=== PATIENT | male | born 1980 | race Caucasian/White ===

== ENCOUNTER 2025-03-31 09:02 | Outpatient (CLI) | payer BC, SELFPAY ==
--- NOTE | ~2025-03-31 | XR_ITS ---
EXAM/ PROCEDURE: XR pelvis 1-2V - 03/31/2025 9:22 CDT HISTORY: 44 years old Male with pain in hip x 3 years COMPARISON: None available TECHNIQUE: Two view(s) FINDINGS/ IMPRESSION: There are no fractures or dislocations.Joint space narrowing, subchondral sclerosis, subchondral cyst formation and osteophyte formation, compatible with mild osteoarthritis. Surgical clips are seen in the pelvis. Reviewed, dictated and finalized at location N.
== END 2025-03-31 09:03 | disposition home or self-care (01) ==
PROVIDERS: PCP Chiropractor Rehabilitation; Visit Provider Chiropractor Rehabilitation
DX: M25.551 Pain in right hip (principal)
CPT/HCPCS: 72170

== ENCOUNTER 2025-05-15 09:09 | Outpatient (CLI) | payer BC, SELFPAY ==
--- NOTE | ~2025-05-15 | MR_ITS ---
EXAMINATION: MR hip RT wo con DATE: 05/15/2025 10:10 INDICATION: Right hip derangement TECHNIQUE: Magnetic resonance imaging (MRI) of the right hip was performed without intravenous contrast. Sequences included full-field axial PD-weighted FS FSE and T1-weighted FSE, coronal of the pelvis with PD-weighted FS FSE, T2- weighted FSE and T1-weighted FSE, small field of view of the right hip with axial PD-weighted FS FSE, sagittal PD-weighted FS FSE, coronal PD-weighted FS FSE and coronal T2 weighted FSE. Additional radial T1-weighted FGR oriented orthogonal to the acetabular rim were obtained for evaluation of the labrum. COMPARISON: Pelvis radiographs dated FINDINGS: Bones/labrum/cartilage: Alignment is normal. There is prominent red marrow reexpansion in the pelvis and femurs which could be seen with anemia or chronic hypoxic state such as smoking. Small low signal intensity sclerotic bone islands at the bilateral femoral heads. No fracture, avascular necrosis or pathologic marrow replacing process. There is mild bilateral anterior acetabular over coverage which could predispose towards pincer-type femoral acetabular and second. Labrum is normal. Mild osteoarthritis at the right hip with prominent partial-thickness cartilage loss without degenerative subchondral changes. Fluid: Symmetric physiologic amount of fluid within both hip joints. Soft tissues: Normal and symmetric muscle bulk and signal in the pelvis and visualized proximal thighs. Partial thickness tear involving a significant portion of the right ischial tuberosity common origin of the right biceps femoris and semitendinosus tendons with approximately 5 mm retraction of the torn portion of the tendon. The right semimembranosus tendon origin as to the contralateral proximal left hamstring tendons. The bilateral iliopsoas and gluteal tendons are normal. Prostatomegaly measuring 4.8 x 3.9 cm Limited evaluation of visceral organs of the pelvis is unremarkable. No pathologically enlarged pe lvic/inguinal lymphadenopathy. IMPRESSION: 1. Partial tear of the common right ischial tuberosity origin of the right biceps femoris and semitendinosus tendons. 2. Mild right hip osteoarthritis. 3. Extensive red marrow reexpansion which can be seen in the setting of anemia or chronic hypoxic state such as smoking. 4. Prostatomegaly. Reviewed, dictated and finalized at location A. IMPRESSION: 1. Partial tear of the common right ischial tuberosity origin of the right abelardo ps femoris and semitendinosus tendons. 2. Mild right hip osteoarthritis. 3. Extensive red marrow reexpansion which can be seen in the setting of anemia or chronic hypoxic state such as smoking. 4. Prostatomegaly.
== END 2025-05-15 09:10 | disposition home or self-care (01) ==
LOC: MICIMG 09:11
PROVIDERS: PCP Chiropractor Rehabilitation; Visit Provider Chiropractor Rehabilitation
DX: S76.011A Strain of muscle, fascia and tendon of right hip, initial encounter (principal); X58.XXXA Exposure to other specified factors, initial encounter; R97.8 Other abnormal tumor markers; N40.0 Benign prostatic hyperplasia without lower urinary tract symptoms
CPT/HCPCS: 73721

== ENCOUNTER 2025-06-21 10:02 | Outpatient (CLI) | payer BC, SELFPAY ==
--- NOTE | ~2025-06-21 | US_ITS ---
EXAM/PROCEDURE: US arterial ankle brachial ind HISTORY: PVD COMPARISON: None available. TECHNIQUE: NIC FINDINGS: Right and left brachial systolic pressure readings are 143 and 139 Right and left posterior tibial pressure readings are 171 and 175 Right and left dorsalis pedis pressures are 163 and 173 Right and left great toe pressure readings are 180 and 124 Right and left ABIs are 1.20 and 1.22 Right and left TBI's are 1.26 and 0.87 Plethysmography appears normal IMPRESSION: Both ABIs greater than 1.0. Reviewed, dictated and finalized at location A. K GRINDER IMPRESSION: Both ABIs greater than 1.0.
== END 2025-06-21 10:03 | disposition home or self-care (01) ==
DX: I73.9 Peripheral vascular disease, unspecified (principal)
CPT/HCPCS: 93922

== ENCOUNTER 2025-07-03 13:33 | Emergency (ER) | payer BC, SELFPAY ==
--- OUTSIDE RECORDS SUMMARY | 2025-07-03 08:40 | XMS_ITS | Encounter Summary ---
Author Organization [facility] Address [address] [facility] [address] [place] [address] Phone Care Team Providers Care Security Installation Sales Technician Name Role Phone Robert Wells MD Primary Care Provider [phone] Reason for Visit * Reason Comments Follow-up Erectile Dysfunction PENILE DOPPLER Encounter Details Date Type Department Care Team (Late st Contact Info) Description 07/03/2025 8:40 AM DRUG COUNSELOR Office Visit [facility] Medicine Urology [address] [facility] Medical Office Building [address] [place] [address] Dave Reddy NP [address] [facility] [place] [address] Erectile dysfunction, unspecified erectile dysfunction type (Primary Dx) Social History Tobacco Use Types Packs/Day Years Used Date Smoking Tobacco: Never Smokeless Tobacco: Never AUDIT-C Answer Date Recorded Q1: How often do you have a drink containing alc ohol? Monthly or less 11/10/2024 Q2: How many drinks containi ng alcohol do you have on a typical day when you are drinking? 1 or 2 11/10/2024 Q3: How often do you have si x or more drinks on one occasion? Never 11/10/2024 PHQ-2 Answer Date Recorded PHQ-2 Total Score (If total score is 3 or more points, staff should administer the PHQ-9) 2 06/15/2025 PHQ-9 Answer Date Recorded PHQ-9 Total Score 2 06/15/2025 Personal Safety Answer Date Recorded Have you ever been in or are you currently in a harmful physical or emotional relationship or is someone making you feel afraid or unsafe? Denies 11/10/2024 Sex and Gender Information Value Date Recorded Sex Assigned at Not on file Legal Sex Male 6:09 AM DRUG COUNSELOR Gender Identity Not on file Sexual Orientation Not on file documented as of this encounter Plan of Treatment Not on file documented as of this encounter Visit Diagnoses Diagnosis Erectile dysfunction, unspecified erectile dysfunction type- Primary documented in this encounter Care Teams Security Installation Sales Technician Relationship Specialty Start Date End Date Robert Wells MD [address] [place] [address] PCP - General Internal Medicine 03/06/20 documented as of this encounter
--- OUTSIDE RECORDS SUMMARY | 2025-07-03 08:40 | XMS_ITS | Encounter Summary ---
Author Organization [facility] Address [address] [facility] [address] [place] [address] Phone Care Team Providers Care Supply Manager Name Role Phone Robert Wells MD Primary Care Provider [phone] Reason for Visit * Reason Comments Follow-up Erectile Dysfunction PENILE DOPPLER Encounter Details Date Type Department Care Team (Late st Contact Info) Description 07/03/2025 8:40 AM TONGUE AND GROOVE MACHINE FEEDER Office Visit [facility] Medicine Urology [address] [facility] Medical Office Building [address] [place] [address] Dave Reddy NP [address] [facility] [place] [address] Erectile dysfunction, unspecified erectile dysfunction [...] on file Legal Sex Male 6:09 AM TONGUE AND GROOVE MACHINE FEEDER Gender Identity Not on file Sexual Orientation Not on file documented as of this encounter Plan of Treatment Not on file documented as of this encounter Visit Diagnoses Diagnosis Erectile dysfunction, unspecified erectile dysfunction type- Primary documented in this encounter Care Teams Supply Manager Relationship Specialty Start Date End Date Robert Wells MD [address] [place] [address] PCP - General Internal Medicine 03/06/20 documented as of this encounter
--- OUTSIDE RECORDS SUMMARY | 2025-07-03 09:40 | XMS_ITS | Encounter Summary ---
Author Organization [facility] Address [address] [facility] [address] [place] [address] Phone Care Team Providers Care Home Stager Name Role Phone Robert Wells MD Primary Care Provider [phone] Encounter Details Date Type Department Care Team (Late st Contact Info) Description 07/03/2025 9:40 AM OXYACETYLENE WELDER Office Visit [facility] Medicine Urology [address] [facility] Medical Office Building [address] [place] [address] Holland Mac MD [address] [facility] [place] [address] Erectile dysfunction, unspecified erectile dysfunction type (Primary [...] on file Legal Sex Male 6:09 AM OXYACETYLENE WELDER Gender Identity Not on file Sexual Orientation Not on file documented as of this encounter Plan of Treatment Not on file documented as of this encounter Visit Diagnoses Diagnosis Erectile dysfunction, unspecified erectile dysfunction type- Primary documented in this encounter Care Teams Home Stager Relationship Specialty Start Date End Date Robert Wells MD [address] [address] PCP - General Internal Medicine 03/06/20 documented as of this encounter
--- OUTSIDE RECORDS SUMMARY | 2025-07-03 09:40 | XMS_ITS | Encounter Summary ---
Author Organization [facility] Address [address] [facility] [address] [place] [address] Phone Care Team Providers Care Lunchroom Operator Name Role Phone Robert Wells MD Primary Care Provider [phone] Encounter Details Date Type Department Care Team (Late st Contact Info) Description 07/03/2025 9:40 AM FLOORING MACHINE FEEDER Office Visit [facility] Medicine Urology [address] [facility] Medical Office Building [address] [place] [address] Holland Mac MD [address] [facility] [place] [address] Erectile dysfunction, unspecified erectile dysfunction type (Primary [...] on file Legal Sex Male 6:09 AM FLOORING MACHINE FEEDER Gender Identity Not on file Sexual Orientation Not on file documented as of this encounter Plan of Treatment Not on file documented as of this encounter Visit Diagnoses Diagnosis Erectile dysfunction, unspecified erectile dysfunction type- Primary documented in this encounter Care Teams Lunchroom Operator Relationship Specialty Start Date End Date Robert Wells MD [address] [address] PCP - General Internal Medicine 03/06/20 documented as of this encounter
[2025-07-03 13:40] VITALS: BP 163/103; PULSE 79; RESP 18; TEMP 36.6; O2SAT 98
--- NOTE | 2025-07-03 13:57 | ED_ITS ---
HPI - Male Genitourinary General Chief complaint: Unspecified Stated complaint: adverse react to trimix, erection 5 hours Time Seen by Provider: 07/03/25 13:43 Source: patient Mode of arrival: ambulatory Limitations: no limitations History of Present Illness HPI Narrative: Patient presents with a priapism. He underwent Trimex injection with his urologist Holland Mac through [facility] this morning to undergo Doppler US flow study to further investigate his erectile dysfunction. He reports that upon injection he developed an erection although he states it wasn't very robust. Study was completed and he said as he was driving home it seemed that the medication had become more effective. He continued to go home and thought it might wear off but erection present for 4-5 hours. Called his urologist but due to weather (snow)/road conditions, the drive back was going to be too long/unsafe so he presents here after calling his urologist. History of hypertension. Related Data Allergies Allergy/AdvReac Type Severity Reaction Status Date / Time lisinopril AdvReac Cough Verified 07/03/25 14:12 [facility] Past Medical History Medical History Erectile dysfunction Hypertension Exam 2 Narrative: GENERAL: Well-appearing, well-nourished, and in no acute distress. HEAD: Normocephalic, atraumatic. EYES: Non injected, non icteric ENT: Nares clear, no rhinorrhea or epistaxis. Gross auditory acuity intact. NECK: Supple. No meningismus. CHEST: Speaking in full sentences. No respiratory distress. HEART: Regular rate and rhythm. . ABDOMEN: Soft, nondistended. No rigidity or guarding. Not peritoneal EXTREMITIES: Normal range of motion. No lower extremity edema. SKIN: Warm, dry, no rash. NEURO: No focal deficits. Alert and oriented. Answering questions. Following commands. Normal speech without aphasia or dysarthria. PSYCH: Normal mood and affect. : Normal circumcised male genitalia. No scrotal mass or swelling. Penile shaft is engorged with an erection but urethral meatus remains spongy/soft. No penile discharge. Course Vital Signs Vital signs: Vital Signs Temperature 97.9 F 07/03/25 13:40 Pulse Rate 79 07/03/25 13:40 Respiratory Rate 18 07/03/25 13:40 Blood Pressure 163/103 H 07/03/25 13:40 Pulse Oximetry 98 07/03/25 13:40 Oxygen Delivery Room Air 07/03/25 13:40 Temperature 98.2 F 07/03/25 16:10 Pulse Rate 84 07/03/25 16:10 Respiratory Rate 18 07/03/25 16:10 Blood Pressure 148/88 H 07/03/25 16:10 Pulse Oximetry 100 07/03/25 16:10 Oxygen Delivery Room Air 07/03/25 13:40 MDM - Male Genitourinary MDM Narrative Medical decision making narrative: Patient presents with a priapism, erection has lasted 4-5 hours. Received a dose of Trimix (alprostadil, papaverine, and phentolamine) at his urologist's office this morning for evaluation of erectile dysfunction undergoing Doppler US flow study. Urologist Holland Mac at [facility]. In the emergency department he is afebrile vital signs notable for hypertension. CBC with mild abnormalities on the differential but otherwise without leukocytosis anemia thrombocytopenia. Advised patient he could try strenuous exercises such as running in place or squats. Spoke with L[facility] Urology PA who will discuss with attending, Dr Cobos. Creatinine is 1.47 with no prior for comparison. Suspect HELEN. 1 L IV fluids ordered. Spoke with Lazaro who concurs phenylephrine advised; no role for oral agents. Initial plan was penile nerve block and irrigation/aspiration of corpus cavernosum for priapism and injection of corpora cavernosa with pharmacologic agent. However, Dr Cobos did come down and directly advised starting with phenylephrine rather than nerve block and aspiration. Procedure Note: Injection of corpora cavernosa with pharmacologic agent Indication :Treatment of Priapism 1. Cleaned area of injection with chlorhexidine. Draped appropriately. 2. Inserted 27 gauge needle into penile shaft at 9 o'clock position (performed by Dr Cobos). Phenylephrine at a concentration of 100mcg per 1mL, 1mL injected after blood aspiration to confirm position. This helps but remains engorged. 3. Inserted 27gauge needle into penile shaft at 3 o'clock position (performed by myself, Dr Enamorado). Phenylephrine at a concentration of 100mcg per 1mL, 1mL injected after blood aspiration to confirm position. Patient starting to achieve detumescence. 4. Patient fully monitored throughout, with BP, HR, pulse oximetry. Heart rate to the mid 70s but without bradycardia. 5. Patient monitored for 5 minutes after and has achieved resolution. Patient stable for discharge. Advised follow up with urologist and returning with any new/worsening / recurrent symptoms. Also advised follow up regarding creatinine as unclear if HELEN versus baseline CKD. Differential Diagnosis Differential diagnosis: Likely priapism (low flow vs high flow; drug induced; ) Lab Data Attestation: I reviewed the patient's lab results. 07/03/25 14:03 07/03/25 14:03 Labs: Lab Results 07/03/25 Range/Units 14:03 WBC 6.7 (4.5-10.0) K/mm3 RBC 5.55 (4.6-6.20) M/mm3 Hgb 17.1 (14.0-18.0) g/dL Hct 49.0 (42.0-52.0) % MCV 88.3 (80-100) fl MCH 30.8 (26-34) pg MCHC 34.9 (32-36) g/dl RDW 12.6 (11.5-14.5) % Plt Count 190 (150-375) k/mm3 MPV 10.1 (7.4-10.4) fl Immature Gran % (Auto) 0.7 H (0-0.5) % Neut % (Auto) 65.4 (45.5-73.1) % Lymph % (Auto) 22.4 (18.3-44.2) % [place] % (Auto) 8.5 (2.6-8.5) % Eos % (Auto) 2.7 (0-4.4) % Baso % (Auto) 0.3 (0.2-1.2) % Lymph # (Auto) 1.51 (0.9-3.2) K/mm3 [place] # (Auto) 0.6 (0.1-0.6) K/mm3 Eos # (Auto) 0.2 (0-0.3) K/mm3 Baso # (Auto) 0.0 (0.0-0.1) K/mm3 Abs Immat Gran (auto) 0.05 H (0.00-0.031) K/mm3 Absolute Neuts (auto) 4.4 (1.3-6.7) K/mm3 Absolute Nucleated RBC 0.000 (0.0-0.012) K/mm3 Nucleated RBC % 0.0 (0.0-0.2) % PT 13.5 (11.1-14.7) Seconds INR 1.0 APTT 27.0 (22.3-36.8) Seconds Sodium 139 (137-145) mmol/L Potassium 3.8 (3.4-5.0) mmol/L Chloride 102 (98-107) mmol/L Carbon Dioxide 31 H (22-30) mmol/L Anion Gap 6 (4-12) mmol/L BUN 8 L (9-20) mg/dL Creatinine 1.47 H (0.7-1.3) mg/dL Estim Creat Clear Calc 76 ml/min Estimated GFR 52 L (59 - ) Glucose 85 (65-110) mg/dL Calcium 9.4 (8.4-10.2) mg/dL Urine Color Yellow (Yellow) Urine Appearance Clear (Clear) Urine pH 8.0 (5.0-9.0) Ur Specific [place] 1.014 (1.001-1.035) Urine Protein Negative (Negative) mg/dL Urine Glucose (UA) Negative (Negative) mg/dL Urine Ketones Negative (Negative) mg/dL Ur Blood (Man) Negative (Negative) Urine Nitrate Negative (Negative) Urine Bilirubin Negative (Negative) Urine Urobilinogen 2.0 H (<2.0) mg/dL Leukocyte Esterase Rfl Negative (Negative) RYAN/UL Urine Opiates Screen Negative (Negative) Urine Methadone Screen Negative (Negative) Ur Barbiturates Screen Negative (Negative) Ur Phencyclidine Scrn Negative (Negative) Ur Amphetamine Screen Negative (Negative) U Benzodiazepines Scrn Negative (Negative) Urine Cocaine Screen Negative (Negative) U Cannabinoids Screen Negative (Negative) Discharge Plan Discharge Clinical Impression: Drug-induced priapism, HELEN (acute kidney injury) Patient Disposition: Home Condition: Stable Instructions: Antibiotic Form, Acute Kidney Injury (DC), Priapism (ED) Additional Instructions: Your creatinine (kidney function number ) was 1.47 which is slightly elevated with no prior for comparison. Suspect this to be a degree of acute kidney injury, possibly due to dehydration but have your urologist or primary care physician follow up on this with a repeat lab draw unless you have underlying mild kidney dysfunction. Follow up with your urologist or our urologist if needed. If you need a primary care physician the name of a doctor is listed below. Return to the emergency department with any new or worsening symptoms. Continue taking all of your other medications as prescribed. Patient Language: [place] Leonean Follow-up/Referrals: Holland Mac [Other] Kimo Cobos MD [Physician, Urology] PHYSICIAN NOT ON STAFF,NONSTAFF [Primary Care Provider] Cipriano Gama MD [Physician, Family Practice] Stand Alone Forms: Work/School Release IP Time of Disposition: 15:58
[2025-07-03 14:14] LABS: Hematocrit 49.0 % (42.0-52.0); Hemoglobin 17.1 g/dL (14.0-18.0); Immature Granulocyte Percent A 0.7 % (0-0.5); Lymphocytes Absolute Auto 1.51 K/mm3 (0.9-3.2); Mean Corpuscular HGB Conc 34.9 g/dl (32-36); Mean Corpuscular Hemoglobin 30.8 pg (26-34); Mean Corpuscular Volume 88.3 fl (80-100); Nucleated Red Blood Cells Absolute Auto 0.000 K/mm3 (0.0-0.012); Nucleated Red Blood Cells Perc 0.0 % (0.0-0.2); Platelet Count Result 190 k/mm3 (150-375); Red Blood Count 5.55 M/mm3 (4.6-6.20); White Blood Count 6.7 K/mm3 (4.5-10.0)
[2025-07-03 14:16] LABS: Add Urine Microscopic? YES; Appearance Urine Clear (Clear); Glucose Urine UA Negative (Negative); Leukocyte Esterase Ur Negative LEU/UL (Negative); Nitrate Urine Negative (Negative); Specific Grav Ur 1.014 (1.001-1.035)
[2025-07-03] MEDS: MORPHINE SULFATE (*CRX) 4 MG/ML INJ IV PUSH (14:18)
[2025-07-03 14:25] LABS: Anion Gap 6 mmol/L (4-12); Blood Urea Nitrogen 8 mg/dL (9-20); Calcium 9.4 mg/dL (8.4-10.2); Carbon Dioxide 31 mmol/L (22-30); Chloride 102 mmol/L (98-107); Estimated CRCL calculation 76 ml/min; Estimated Glomerular Filt Rate 52; Glucose 85 mg/dL (65-110); Potassium 3.8 mmol/L (3.4-5.0); Sodium 139 mmol/L (137-145)
[2025-07-03 14:28] LABS: INR 1.0; Prothrombin Time 13.5 Seconds (11.1-14.7)
[2025-07-03 14:29] LABS: Partial Thromboplastin Time 27.0 Seconds (22.3-36.8)
[2025-07-03 14:33] LABS: Cannabinoid Screen Urine Negative (Negative)
[2025-07-03] MEDS: SODIUM CHLORIDE 0.9% IV 1,000 ML 999 ML IV CONT (14:38)
--- OUTSIDE RECORDS SUMMARY | 2025-07-03 14:39 | XMS_ITS | Encounter Summary ---
Author Organization [facility] Address [address] [place] [address] Care Team Providers Care Care Attendant Name Role Phone Robert Wells MD Primary Care Provider [phone] Encounter Details Date Type Department Care Team (Late st Contact Info) Description 06/21/2025 Results Follow-Up [facility] [address] [address] Robert Wells MD [address] [address] [place] Social History Tobacco Use Types Packs/Day Years [...] on file Legal Sex Male 6:09 AM TIN ROOFER Gender Identity Not on file Sexual Orientation Not on file documented as of this encounter Plan of Treatment Not on file documented as of this encounter Visit Diagnoses Not on filedocumented in this encounter Care Teams Care Attendant Relationship Specialty Start Date End Date Robert Wells MD [address] [address] PCP - General Internal Medicine 03/06/20 documented as of this encounter
--- OUTSIDE RECORDS SUMMARY | 2025-07-03 14:40 | XMS_ITS | Clinical Summary ---
Author Organization [facility] Address [address] [facility] [place] [address] Phone Care Team Providers Care Senior Financial Reporting Analyst Name Role Phone Unavailable Primary Care Provider Unavailabl e Allergies No known active allergies Medications No known medications Active Problems No known active problems Immunizations Immunization Administration Dates Next Due (ADACEL/BOOSTRIX)(10 YR UP) TDAP VACCINE, 0.5ML, IM 10/03/2010 Social History Tobacco Use Types Packs/Day Years Used Date Smoking Tobacco: Never Smokeless Tobacco: Never Sex and Gender Information Value Date Recorded Sex Assigned at Not on file Legal Sex Male 4:52 AM NURSING OFFICER Gender Identity Not on file Sexual Orientation Not on file Last Filed Vital Signs Vital Sign Reading Time Taken Comments Blood Pressure 147/100 10/03/2010 3:40 PM NURSING OFFICER Pulse 74 10/03/2010 3:40 PM NURSING OFFICER Temperature 36.4 C (97.5 F) 10/03/2010 3:40 PM NURSING OFFICER Respiratory Rate 16 10/03/2010 3:40 PM NURSING OFFICER Oxygen Saturation - - Inhaled Oxygen Concentration - - Weight - - Height - - Body Mass Index - - Plan of Treatment Health Maintenance Due Date Last Done Comments HEPATITIS B VACCINES (1 of 3 - 19+ 3-dose series) 04/04 HPV VACCINES (1 - 3-dose SCDM series) 2009 DTAP/TDAP/TD VACCINES (2 - Td or Tdap) 10/03/2020 INFLUENZA VACCINE (#1) 2025
--- OUTSIDE RECORDS SUMMARY | 2025-07-03 14:40 | XMS_ITS | Clinical Summary ---
Author Organization [facility] 1 Address [address] [place] [address] Care Team Providers Care Obstetrics Teacher Name Role Phone Robert Wells MD Primary Care Provider [phone] Allergies Active Allergy Reactions Criticality Noted Date Comments Lisinopril Cough Low 11/04/2022 Medications budesonide (PULMICORT) 0.5 mg/2 mL nebulizer solution MIX 1 CAPSULE/AMPULE IN 250 ML OF SALINE IRRIGATIONS (NEILMED SINUS RINSE) AND IRRIGATE EACH NOSTRIL WITH HALF OF THE BOTTLE TWICE DAILY. 120 mL 6 0 Active Additional Information Patient not taking.Reported on 07/03/2025 ibuprofen 200 mg tab/cap Take 2 tablet/capsule (400 mg total) by mouth every 8 (eight) hours as needed for pain Active multivitamin tabletIndication s:Vitamin Deficiency Prevention Take 1 tablet by mouth every morning Multivitamin pack Active acetaminophen (TYLENOL) 500 mg tablet Take 1 tablet (500 mg total) by mouth every 6 (six) hours as needed for pain 30 tablet 5 Active HYDROcodone-acet aminophen (NORCO) 5-325 mg per tabletIndication s:Pain Take 1 tablet by mouth every 6 (six) hours as needed for pain 10 tablet 5 Active Additional Information Patient not taking.Reported on 07/03/2025 sildenafiL, pulm.hypertensio n, (REVATIO) 20 mg tablet Take 1 tablet (20 mg total) by mouth daily as needed (erections) Take 1-5 tablets by mouth as needed (take on empty stomach) 30 tablet Active losartan (COZAAR) 100 mg tablet TAKE 1 TABLET BY MOUTH DAILY 90 tablet 5 Active hydroCHLOROthiaz claudio (MICROZIDE) 12.5 mg capsuleIndicatio ns:Benign hypertension TAKE 1 CAPSULE BY MOUTH DAILY 90 capsule Active testosterone cypionate (DEPO-TESTOTERON E) 200 mg/mL injection Inject into the muscle as instructed every 14 (fourteen) days Active Active Problems Problem Noted Date Diagnosed Date Claudication 06/15/2025 Assessment & Plan (06/15/2025 9:11 AM FORESTRY PATROLMAN): Bilateral leg muscle pain with exercise, exertion Erectile dysfunction 06/15/2025 Assessment & Plan (06/15/2025 9:20 AM FORESTRY PATROLMAN): Chronic; working with urologist Varicocele 09/05/2024 LLQ pain 07/19/2024 Assessment & Plan (07/19/2024 9:54 AM FORESTRY PATROLMAN): Few weeks; worsening; no bowel changes; no nausea, vomiting; ?diverticulitis; abx; CT scan; monitor progress Cutaneous skin tags 07/19/2024 Assessment & Plan (07/19/2024 9:55 AM FORESTRY PATROLMAN): Right axilla with irritated skin tag; abx for suspected diverticulitis should help this as well Epigastric pain 10/09/2023 Assessment & Plan (10/09/2023 1:33 PM FORESTRY PATROLMAN): Intermittent since 09/02; fullness; decreased appetite; no bowel changes; ?biliary, ?peptic ulcer; plans per first line tests; may need GI/endoscopy Morbid obesity 05/18/2023 Assessment & Plan (06/15/2025 9:04 AM FORESTRY PATROLMAN): Wgt unchanged; Discussed healthy diet and importance of regular physical activity. Assessment & Plan (07/19/2024 9:54 AM FORESTRY PATROLMAN): Wgt unchanged; Discussed healthy diet and importance of regular physical activity. Assessment & Plan (06/14/2024 2:17 PM FORESTRY PATROLMAN): Wgt unchanged; Discussed healthy diet and importance of regular physical activity. Assessment & Plan (10/09/2023 1:34 PM FORESTRY PATROLMAN): Unchanged; Discussed healthy diet and importance of regular physical activity. Assessment & Plan (05/18/2023 3:48 PM CDT): Weight up some; Discussed healthy diet and importance of regular physical activity. BRBPR (bright red blood per rectum) 10/30/2021 Assessment & Plan (10/30/2021 11:02 AM CDT): Noted blood per rectum for the past 1 year on toilet tissue and stool as well worsening for the past 6 months on daily basis sometimes. Daily fiber supplement recommended such as FiberCon, Benefiber, Citrucel or Metamucil. Metamucil can cause more bloating and gas however it is still a very good fiber supplement. Choose a fiber supplement [id number] and follow the instructions in the back. See plan for possible constipation likely/questionable irritable bowel syndrome. Anusol suppositories for 2 weeks nightly a day and when patient has completed does can take [id number] Calmol 4 suppositories twice daily as needed for bleeding per rectum. Unable to do Epsom salts Sitz baths, use Vaseline before and after BMs. Colonoscopy will be scheduled to determine the cause of the lower gastrointestinal bleeding. The differential diagnosis includes but is not limited to diverticulosis, microscopic colitis, colonic polyps, hemorrhoids, infectious colitis, rectal ulcer, ulcerative colitis, colonic neoplasms. Please check for spots for colonoscopy for patient within the next 2 months if we do not have any I will send a referral to [facility] which is actually closer for patient Dr. Daly. Family history of Crohn's disease 10/30/2021 Assessment & Plan (10/30/2021 11:05 AM CDT): Paternal uncle Crohn's disease diagnosed in his 20s. Other constipation 10/30/2021 Assessment & Plan (10/30/2021 11:04 AM CDT): Noted pattern of occasional constipation with harder stools infrequently per patient maybe once a month. Daily fiber supplement recommended see plan for blood in stool/bleeding per rectum/BRBPR. In addition if patient is still sees harder pebbly stools or constipation he needs to take [id number] stool softener Colace 100 mg 1 or 2 tablets daily versus MiraLax laxative half a cap full Thursday can increase up to a cap full daily if needed. The goal is to have soft stool on regular basis. Bilateral varicoceles 06/04/2021 Benign essential HTN 03/06/2020 Assessment & Plan (06/15/2025 9:12 AM FORESTRY PATROLMAN): Chronic; controlled on losartan, HCT; continue Assessment & Plan (06/14/2024 2:18 PM FORESTRY PATROLMAN): BP a little up today; no alarm sx; continue HCT, losartan; monitor Assessment & Plan (05/18/2023 3:48 PM CDT): OK on losartan-HCT; Discussed healthy diet and importance of regular physical activity. Assessment & Plan (03/06/2020 3:23 PM CDT): Stable on HCT, lisinopril; continue; monitor Multiple nasal polyps 10/07/2019 Chronic pansinusitis 10/07/2019 Resolved Problems Problem Noted Date Diagnosed Date Resolved Date Tinea cruris 11/04/2022 06/14/2024 Assessment & Plan (11/04/2022 4:48 PM CDT): 1 month; in groin folds sparing the scrotum; topical rx and monitor YAAKOV-inhibitor cough 11/04/2022 06/14/20 Assessment & Plan (11/04/2022 4:48 PM CDT): Change to losartan; monitor sx and BP Fatigue 02/11/2022 06/14/2024 Assessment & Plan (02/11/2022 4:51 PM CDT): Continues; muscular weakness; ?low testosterone; plans per labs Scalp lesion 02/11/2022 06/14/2024 Assessment & Plan (02/11/2022 4:53 PM CDT): Area of left religious scalp looks normal now; no flaking, scaling or discoloration; advised patient to send photo when changes are present so we can better diagnose Screening for colon cancer 11/27/2021 0 02/11/2022 Overview (11/27/2021): Added automatically from request for surgery [id number] Total bilirubin, elevated 10/30/2021 Assessment & Plan (10/30/2021 11:58 AM CDT): Total bilirubin elevated on blood work from June 2021 and previously in 2019. The rest of his liver enzymes are normal likely a benign condition. In future, if persistent elevation on blood work consider direct bilirubin level. Blood in stool 06/04/2021 06/14/2024 Assessment & Plan (06/04/2021 3:41 PM CDT): New; few months; most BM's; ?hemorrhoids, rule out polyps, neoplasm etc Shortness of breath 06/04/2021 06/14/20 24 Assessment & Plan (06/04/2021 3:42 PM CDT): Usually with certain type of exercises at the gym; denies wheezing; normal stress and echo 2018. Has nasal polyps, eczema; suspect asthma as well; empiric trial of montelukast and monitor Abscess of axilla 10/28/2019 03/06/2020 Assessment & Plan (10/28/2019 11:43 AM CDT): Patient presents with cyst present to left axilla for the last week. No drainage noted. Painful to palpation of the area. Patient has history of axillary abscesses. Suspect abscess. Unable to drain at this time. Recommend warm compresses to the area. Keflex sent to pharmacy. F/U if no improvement in symptoms in 2 weeks. Acute bronchitis 04/26/2019 03/06/2020 Assessment & Plan (04/26/2019 2:30 PM CDT): Symptoms for over a week now- coughing fits, chest congestion, fatigue. No fever or chills that he knows of. Denies any wheezing or SOB. Has been taking OTC medication with little relief in symptoms Encounters Date Type Department Care Team Description 07/03/2025 9:40 AM FORESTRY PATROLMAN Office Visit [facility] [address] [place] [address] [address] [place] [phone] Holland Mac MD Erectile dysfunction, unspecified erectile dysfunction type (Primary Dx) 07/03/2025 8:40 AM FORESTRY PATROLMAN Office Visit [facility] [address] [place] [address] [address] [place] [phone] Dave Reddy NP Erectile dysfunction, unspecified erectile dysfunction type (Primary Dx) 07/03/[address] [facility] Medicine Surgery [address] [place] [address] Shikha Starks, [facility] 06/21/2025 Results Follow-Up [facility] at [address] [address] Robert Wells MD [facility] 06/19/2025 Telephone [facility] at [address] [address] Robert Wells MD Authorization/Certi fication 06/15/2025 9:00 AM FORESTRY PATROLMAN Office Visit [facility] at [address] [address] Robert Wells MD Routine medical exam (Primary Dx); Morbid obesity (HCC); BMI 37.0-37.9, adult; Claudication; Benign essential HTN; Immunization due; Erectile dysfunction, unspecified erectile dysfunction type 06/15/2025 Orders Only [facility] at [address] [place] [phone] Provider, MD Talisha 05/15/2025 2:40 PM CDT Office Visit [facility] Medicine Urology [address] [facility] Building 4 [address] [place] [address] Holland Mac MD Scrotal pain (Primary Dx) from Last 3 Months Immunizations Immunization Administration Dates Next Due DTP 09/19/1988, 8,01/09/1988,06/03 DTaP 10/25/2010 Influenza, Quadrivalent, Spl it, Preservative Free, Intramuscular 05/18/2023,06/04/2021,08/05/2018,08/24 Influenza, Trivalent, Preser vative Free, Intramuscular 06/15/2025,06/14/2024 Influenza, Unspecified 05/18/2023(Deferr ed: Patient Refused),10/01/2022(Deferred: Patient Refused),10/01/2021(Deferred: Patient Refused),10/01/2020(Deferred: Patient Refused),10/02/2019(Deferred: Patient Refused),04/26/2019(Deferred: Patient ill today) MMR 02/19/1993 OPV 09/19/1988, 8,01/09/1988,06/03 Pfizer SARS-CoV-2 Monovalent Vaccination (12+ Yrs) PURPLE 02/22/2021 Tdap 05/18/2023,10/03/2010 Surgical History Surgery Date Site/Laterality Comments RETINA SURGERY Left KNEE ARTHROSCOPY 08/03/2005 - 08/02/2006 Left NASAL POLYP EXCISION x3 Medical History Medical History Date Comments Hypertension Sinus problem Sleep apnea Acid reflux Family History Medical History Relation Name Comments Heart disease Maternal Grandmother Grandma Taye Lung cancer Mother Anesthesia problems Neg Hx Malig Hypertension Neg Hx Malig Hyperthermia Neg Hx Pseudochol deficiency Neg Hx Relation Name Status Comments Maternal Grandmother Grandma Taye Mother Social History Tobacco Use Types Packs/Day Years Used Date Smoking Tobacco: Never Smokeless Tobacco: Never Tobacco Cessation:Counseling Given: Not Answered AUDIT-C Answer Date Recorded Q1: How often [...] on file Legal Sex Male 6:09 AM FORESTRY PATROLMAN Gender Identity Not on file Sexual Orientation Not on file Last Filed Vital Signs Vital Sign Reading Time Taken Comments Blood Pressure 138/82 06/15/2025 8:54 AM FORESTRY PATROLMAN Pulse 76 06/15/2025 8:54 AM FORESTRY PATROLMAN Temperature 36 C (96.8 F) 11/10/2024 10:45 AM CDT Respiratory Rate 22 11/10/2024 11:55 AM CDT Oxygen Saturation 98% 06/15/2025 8:54 AM FORESTRY PATROLMAN Inhaled Oxygen Concentration - - Weight 122 kg (269 lb) 06/15/2025 8:54 AM FORESTRY PATROLMAN Height 180.3 cm (5' 11) 06/15/2025 8:54 AM FORESTRY PATROLMAN Body Mass Index 37.52 06/15/2025 8:54 AM FORESTRY PATROLMAN Plan of Treatment Health Maintenance Due Date Last Done Comments Hepatitis C Screening 1982 Hepatitis B Screening 2000 HPV Vaccines (1 - 3-dose SCDM series) 2009 Covid-19 Vaccine ( season) 2025 03/15/2021, 02/22/2021 Depression Screening 06/15/2026 06/15/2025, 06/15/2025, 06/14/2024, Additional history exists Regular Well Visit/Exam 18-64 06/15/2026 06/15/2025, 06/14/2024, 05/18/2023, Additional history exists DTaP/Tdap/Td Vaccine (8 - Td or Tdap) 05/18/2033 05/18/2023, 10/25/2010, 10/03/2010, Additional history exists Influenza Vaccine Completed 06/15/2025, , 05/18/2023, Additional history exists Pneumococcal vaccine <65 Aged Out No longer eligible based on patient's age to complete this topic Varicella Vaccines Discontinued Procedures Procedure Name Priority Date/Time Associated Diagnosis Comments US NIC Routine 06/21/2025 Claudication MRI HIP RIGHT W WO CONTRAST Schedule Routine, Read Routine (OP Routine) 05/15/2025 10:40 AM CDT from Last 3 Months Results * US NIC (06/21/2025) Anatomical Region Laterality Modality Vascular N/A Ultrasound 06/21/2025 Robert Wells MD IMG US PROCEDURES Final Result * MRI Hip Right W WO Contrast (05/15/2025 10:40 AM CDT) Anatomical Region Laterality Modality Lower Extremities Right Magnetic Reson ance Narrative 05/15/2025 10:40 AM CDT Please see attached report. Historical Provider IMCelio MRI PROCEDURES Edited Result - Final from Last 3 Months Insurance [employer] [facility] Address: [address] [place] [address] [employer] Care Teams Obstetrics Teacher Relationship Specialty Start Date End Date Robert Wells MD [address] [place] [id number] PCP - General Internal Medicine 03/06/20
--- OUTSIDE RECORDS SUMMARY | 2025-07-03 14:40 | XMS_ITS | Encounter Summary ---
Author Organization [facility] Address [address] [place] [address] Care Team Providers Care Lemon Picker Name Role Phone Unavailable Primary Care Provider Unavailabl e Encounter Details Date Type Department Care Team (Late st Contact Info) Description 10/18/1999 Outpatient Historical [facility]s [address] [place] [phone] Mavis Mcgowan Social History Tobacco Use Types Packs/Day Years Used Date Smoking Tobacco: Never Assessed Sex and Gender Information Value Date Recorded Sex Assigned at Not on file Legal Sex Male 4:52 AM VENUE MANAGER Gender Identity Not on file Sexual Orientation Not on file documented as of this encounter Plan of Treatment Not on file documented as of this encounter Visit Diagnoses Not on filedocumented in this encounter
--- OUTSIDE RECORDS SUMMARY | 2025-07-03 14:40 | XMS_ITS | Clinical Summary ---
Author Organization [facility] Address [address] [place] [address] Care Team Providers Care Manager Respiratory Care Name Role Phone Carlos Manuel Gonzalez DO Primary Care Provider [phone] Nahid Verdin MD Unavailable [phone] Source Comments [facility],non-owned Affiliates and Associated Physician Practices is amultiple site organization consisting of ambulatory clinics and hospital sitesin [place], [place], [place] and [place]. This disclosure is being madepursuant to the Care Everywhere program and may not contain all information available regarding this patient. Last updated 18.[facility] Allergies No known active allergies Medications * Be aware that medications may not be up to date on this document. Alwaysverify current medications with the patient. azithromycin (ZITHROMAX) 250 MG tablet Take 2 tablets now, then 1 tablet daily for 4 days. 6 Tab 0 07/07/2011 Active Active Problems Problem Noted Date Diagnosed Date Hyperbilirubinemia 06/06/2011 Chronic sinusitis 11/07/2009 Malaise and fatigue 11/07/2009 Resolved Problems Problem Noted Date Diagnosed Date Resolved Date Gilbert syndrome 06/15/2011 07/07/2011 Hand fracture, right 11/18/2010 011 Ingrown toenail 11/07/2009 05/27/2011 HTN (hypertension), benign 11/07/2009 1 Immunizations Immunization Administration Dates Next Due DTaP VACCINE IM (6wk-6yrs) 10/25/2010 Family History Medical History Relation Name Comments CAD (Coronary Artery Disease) Maternal Grandmother Cancer Mother lung Relation Name Status Comments Maternal Grandmother Mother Social History Tobacco Use Types Packs/Day Years Used Date Smoking Tobacco: Never Smokeless Tobacco: Never Tobacco Cessation:Counseling Given: Yes Alcohol Use Standard Drinks/Week Comments Yes 0 (1 standard drink = 0.6 oz pur e alcohol) 1-2 drinks per week at most Sex and Gender Information Value Date Recorded Sex Assigned at Not on file Legal Sex Male 8:43 AM DRYING ROOM ATTENDANT Gender Identity Not on file Sexual Orientation Not on file Last Filed Vital Signs Vital Sign Reading Time Taken Comments Blood Pressure 128/76 07/07/2011 2:31 PM DRYING ROOM ATTENDANT Pulse 91 07/07/2011 2:31 PM DRYING ROOM ATTENDANT Temperature 36.9 C (98.4 F) 07/07/2011 2:31 PM DRYING ROOM ATTENDANT Respiratory Rate 18 11/16/2010 5:17 AM CDT Oxygen Saturation 96% 07/07/2011 2:31 PM DRYING ROOM ATTENDANT Inhaled Oxygen Concentration - - Weight 97.1 kg (214 lb) 07/07/2011 2:30 PM DRYING ROOM ATTENDANT Height 182.9 cm (6') 07/07/2011 2:31 PM DRYING ROOM ATTENDANT Body Mass Index 29.02 07/07/2011 2:30 PM DRYING ROOM ATTENDANT Plan of Treatment Health Maintenance Due Date Last Done Comments HIV SCREENING 1997 HEPATITIS C SCREENING 04/20/2000 HEPATITIS B VACCINE (1 of 3 - 19+ 3-dose series) 2001 HPV VACCINE (1 - 3-dose SCDM series) 2009 LIPID TESTING 05/27/2016 05/27/2011, 11/07/2009 DTAP/TDAP/TD VACCINES (2 - Tdap) 10/25/2020 10/25/2010 DEPRESSION SCREENING 08/03/2024 COVID-19 VACCINE (1 - 2024-2 6 season) 2025 INFLUENZA VACCINE (#1) 2025 ZOSTER VACCINE (1 of 2) 2032 HIB VACCINE Aged Out No longer eligi ble based on patient's age to complete this topic MENINGOCOCCAL (Group B) VACCINE SHARED DECISION-MAKING Aged Out No longer eligible based on patient's age to complete this topic MENINGOCOCCAL GROUPS A/C/Y/W VACCINE Aged Out No longer eligible b ased on patient's age to complete this topic PNEUMOCOCCAL VACCINE Aged Out No long er eligible based on patient's age to complete this topic Procedures Procedure Name Priority Date/Time Associated Diagnosis Comments LIPID PROFILE Routine 05/27/2011 10:14 AM CDT Routine general medical examination at a health care facility Screening for lipoid disorders from Last 3 Months or Most Recently Relevant to Health Maintenance Results * LIPID PROFILE (05/27/2011 10:14 AM CDT) Cholesterol 136 100 - 199 mg/dL [facility] ACCOUNT BILL Triglycerides 136 0 - 149 mg/dL [facility] ACCOUNT BILL HDL Cholesterol 43 >39 mg/dL [facility] ACCOUNT BILL Comment: According to ATP-III Guidelines, HDL-C >59 mg/dL is considered a negative risk factor for CHD. VLDL Calculated 27 5 - 40 mg/dL [facility] ACCOUNT BILL LDL Calculated 66 0 - 99 mg/dL [facility] ACCOUNT BILL Blood specimen (specimen) BLOOD SPECIMEN / Unknown 05/27/2011 10:14 AM CDT 05/27/2011 5:36 PM CDT Narrative Resulting Agency Comment [facility] [address] [facility] [id number] Carlos Manuel Gonzalez DO LAB - CHEMISTRY ORDERABLES Fin al Result [facility] ACCOUNT BILL [address] [place] [address] from Last 3 Months or Most Recently Relevant to Health Maintenance Care Teams Manager Respiratory Care Relationship Specialty Start Date End Date Carlos Manuel Gonzalez DO [address] [place] [address] PCP - General Family Medicine 11/13/09 Nahid Verdin MD [address] [place] [address] Physician Otolaryngology 05/27/11
--- OUTSIDE RECORDS SUMMARY | 2025-07-03 14:40 | XMS_ITS | Encounter Summary ---
Author Organization [facility] Address [address] [place] [address] Phone Care Team Providers Care Powder Guard Name Role Phone Robert Wells MD Primary Care Provider [phone] Encounter Details Date Type Department Care Team (Late st Contact Info) Description 07/03/2025 Telephone [facility] Medicine Surgery [facility] [place] [address] Shikha Starks, [facility] Social History Tobacco Use Types Packs/Day Years [...] on file Legal Sex Male 6:09 AM CONTOUR GRINDER Gender Identity Not on file Sexual Orientation Not on file documented as of this encounter Miscellaneous Notes * Telephone Encounter - Shikha Starks CMA - 07/03/2025 12:48 PM CONTOUR GRINDER Date: 07/03/2025 Reason for Call: patient still having effects from TRIMIX and wanted to confirm Urgent care or ER and spoke with Dave which returned call to patient. Patient Provider:anshu Medical/Surgical Information: Outcome/Plan: OUR GRINDER documented in this encounter Plan of Treatment Not on file documented as of this encounter Visit Diagnoses Not on filedocumented in this encounter Care Teams Powder Guard Relationship Specialty Start Date End Date Robert Wells MD [address] [place] [id number] PCP - General Internal Medicine 03/06/20 documented as of this encounter
--- OUTSIDE RECORDS SUMMARY | 2025-07-03 14:40 | XMS_ITS | Encounter Summary ---
Author Organization [facility] Address [address] [place] [address] Care Team Providers Care Class B Driver Name Role Phone Unavailable Primary Care Provider Unavailabl e Encounter Details Date Type Department Care Team (Late st Contact Info) Description 03/22/1999 Outpatient Historical [facility] Pediatrics [address] [place] [address] Livier Naik MD NO ADDRESS ON FILE Social History Tobacco Use Types Packs/Day Years Used Date Smoking Tobacco: Never Assessed Sex and Gender Information Value Date Recorded Sex Assigned at Not on file Legal Sex Male 4:52 AM DRY CLEANER Gender Identity Not on file Sexual Orientation Not on file documented as of this encounter Plan of Treatment Not on file documented as of this encounter Visit Diagnoses Not on filedocumented in this encounter
--- OUTSIDE RECORDS SUMMARY | 2025-07-03 15:26 | XMS_ITS | Encounter Summary ---
Author Organization [facility] Address [address] [place] [address] Care Team Providers Care Director Of Vocational Guidance Name Role Phone Robert Wells MD Primary Care Provider [phone] Encounter Details Date Type Department Care Team (Late st Contact Info) Description 06/21/2025 Results Follow-Up [facility] Medical Group at [facility] [address] [address] Robert Wells MD [address] [address] [place] NIC Social History Tobacco [...] on file Legal Sex Male 6:09 AM ORACLE FUSION DEVELOPER Gender Identity Not on file Sexual Orientation Not on file documented as of this encounter Plan of Treatment Not on file documented as of this encounter Visit Diagnoses Not on filedocumented in this encounter Care Teams Director Of Vocational Guidance Relationship Specialty Start Date End Date Robert Wells MD [address] [address] PCP - General Internal Medicine 03/06/20 documented as of this encounter
--- OUTSIDE RECORDS SUMMARY | 2025-07-03 15:26 | XMS_ITS | Clinical Summary ---
Author Organization [employer] [facility] Address [address] [address] Phone Care Team Providers Care Director Data Analytics Name Role Phone Unavailable Primary Care Provider [...] on file Legal Sex Male 4:52 AM FREIGHT DISPATCHER Gender Identity Not on file Sexual Orientation Not on file Last Filed Vital Signs Vital Sign Reading Time Taken Comments Blood Pressure 147/100 10/03/2010 3:40 PM FREIGHT DISPATCHER Pulse 74 10/03/2010 3:40 PM FREIGHT DISPATCHER Temperature 36.4 C (97.5 F) 10/03/2010 3:40 PM FREIGHT DISPATCHER Respiratory Rate 16 10/03/2010 3:40 PM FREIGHT DISPATCHER Oxygen Saturation - - Inhaled Oxygen Concentration [...]
--- OUTSIDE RECORDS SUMMARY | 2025-07-03 15:26 | XMS_ITS | Encounter Summary ---
Author Organization [facility] Address [address] [place] [address] Care Team Providers Care Coder Name Role Phone Unavailable Primary Care Provider Unavailabl e Encounter Details Date Type Department Care Team (Late st Contact Info) Description 10/18/1999 Outpatient Historical [facility] [address] [place] [id number] Mavis Mcgowan Social History Tobacco Use Types Packs/Day Years Used Date Smoking Tobacco: Never Assessed Sex and Gender Information Value Date Recorded Sex Assigned at Not on file Legal Sex Male 4:52 AM OFFSET PRESS OPERATOR Gender Identity Not on file Sexual Orientation Not on file documented as of this encounter Plan of Treatment Not on file documented as of this encounter Visit Diagnoses Not on filedocumented in this encounter
--- OUTSIDE RECORDS SUMMARY | 2025-07-03 15:26 | XMS_ITS | Encounter Summary ---
Author Organization [facility] Address [address] [place] [address] Phone Care Team Providers Care Correctional Officer Sergeant Name Role Phone Robert Wells MD Primary Care Provider [phone] Encounter Details Date Type Department Care Team (Late st Contact Info) Description 07/03/2025 Telephone [facility] Medicine Surgery [facility] [place] [address] Shikha Starks, [facility] Social History Tobacco Use Types Packs/Day Years [...] on file Legal Sex Male 6:09 AM HORSE EXERCISER Gender Identity Not on file Sexual Orientation Not on file documented as of this encounter Miscellaneous Notes * Telephone Encounter - Shikha Starks CMA - 07/03/2025 12:48 PM HORSE EXERCISER Date: 07/03/2025 Reason for Call: patient still having effects from TRIMIX and wanted to confirm Urgent care or ER and spoke with Dave which returned call to patient. Patient Provider:anshu Medical/Surgical Information: Outcome/Plan: E EXERCISER documented in this encounter Plan of Treatment Not on file documented as of this encounter Visit Diagnoses Not on filedocumented in this encounter Care Teams Correctional Officer Sergeant Relationship Specialty Start Date End Date Robert Wells MD [address] [place] [address] PCP - General Internal Medicine 03/06/20 documented as of this encounter
--- OUTSIDE RECORDS SUMMARY | 2025-07-03 15:26 | XMS_ITS | Clinical Summary ---
Author Organization [facility] Address [address] [place] [address] Care Team Providers Care Fiscal Agent Name Role Phone Carlos Manuel Gonzalez DO Primary Care Provider [phone] Nahid Verdin MD Unavailable [phone] Source Comments [facility],non-owned Affiliates and Associated Physician Practices is amultiple site organization consisting of ambulatory clinics and hospital sitesin [place], [place], [place] and [place]. This disclosure is being madepursuant to the Care Everywhere program and may not contain all information available regarding this patient. Last updated 18.[facility] Allergies No known active allergies Medications * [...] on file Legal Sex Male 8:43 AM WEBSPHERE PROCESS SERVER DEVELOPER Gender Identity Not on file Sexual Orientation Not on file Last Filed Vital Signs Vital Sign Reading Time Taken Comments Blood Pressure 128/76 07/07/2011 2:31 PM WEBSPHERE PROCESS SERVER DEVELOPER Pulse 91 07/07/2011 2:31 PM WEBSPHERE PROCESS SERVER DEVELOPER Temperature 36.9 C (98.4 F) 07/07/2011 2:31 PM WEBSPHERE PROCESS SERVER DEVELOPER Respiratory Rate 18 11/16/2010 5:17 AM CDT Oxygen Saturation 96% 07/07/2011 2:31 PM WEBSPHERE PROCESS SERVER DEVELOPER Inhaled Oxygen Concentration - - Weight 97.1 kg (214 lb) 07/07/2011 2:30 PM WEBSPHERE PROCESS SERVER DEVELOPER Height 182.9 cm (6') 07/07/2011 2:31 PM WEBSPHERE PROCESS SERVER DEVELOPER Body Mass Index 29.02 07/07/2011 2:30 PM WEBSPHERE PROCESS SERVER DEVELOPER Plan of Treatment Health Maintenance Due Date [...] PM CDT Narrative Resulting Agency Comment [facility] [address] [facility] [facility] [phone] Carlos Manuel Gonzalez DO LAB - CHEMISTRY ORDERABLES Fin al Result [facility] ACCOUNT BILL [address] [place] [address] from Last 3 Months or Most Recently Relevant to Health Maintenance Care Teams Fiscal Agent Relationship Specialty Start Date End Date Carlos Manuel Gonzalez DO [address] [place] [address] PCP - General Family Medicine 11/13/09 Nahid Verdin MD [address] [place] [address] Physician Otolaryngology 05/27/11
--- OUTSIDE RECORDS SUMMARY | 2025-07-03 15:26 | XMS_ITS | Clinical Summary ---
Author Organization [facility] [address] Address [address] [place] [address] Care Team Providers Care Automotive Welder Name Role Phone Robert Wells MD Primary Care Provider [phone] Allergies Active Allergy Reactions Criticality Noted Date [...] 06/15/2025 Assessment & Plan (06/15/2025 9:11 AM CLIPPER COUNTERS): Bilateral leg muscle pain with exercise, exertion Erectile dysfunction 06/15/2025 Assessment & Plan (06/15/2025 9:20 AM CLIPPER COUNTERS): Chronic; working with urologist Varicocele 09/05/2024 LLQ pain 07/19/2024 Assessment & Plan (07/19/2024 9:54 AM CLIPPER COUNTERS): Few weeks; worsening; no bowel changes; no nausea, vomiting; ?diverticulitis; abx; CT scan; monitor progress Cutaneous skin tags 07/19/2024 Assessment & Plan (07/19/2024 9:55 AM CLIPPER COUNTERS): Right axilla with irritated skin tag; abx for suspected diverticulitis should help this as well Epigastric pain 10/09/2023 Assessment & Plan (10/09/2023 1:33 PM CLIPPER COUNTERS): Intermittent since 09/02; fullness; decreased appetite; no bowel changes; ?biliary, ?peptic ulcer; plans per first line tests; may need GI/endoscopy Morbid obesity 05/18/2023 Assessment & Plan (06/15/2025 9:04 AM CLIPPER COUNTERS): Wgt unchanged; Discussed healthy diet and importance of regular physical activity. Assessment & Plan (07/19/2024 9:54 AM CLIPPER COUNTERS): Wgt unchanged; Discussed healthy diet and importance of regular physical activity. Assessment & Plan (06/14/2024 2:17 PM CLIPPER COUNTERS): Wgt unchanged; Discussed healthy diet and importance of regular physical activity. Assessment & Plan (10/09/2023 1:34 PM CLIPPER COUNTERS): Unchanged; Discussed healthy diet and importance of [...] good fiber supplement. Choose a fiber supplement [id number] and follow the instructions in the back. See plan for possible constipation likely/questionable irritable bowel syndrome. Anusol suppositories for 2 weeks nightly a day and when patient has completed does can take [id number] Calmol 4 suppositories twice daily as needed [...] stools or constipation he needs to take [id number] stool softener Colace 100 mg 1 or 2 tablets daily versus MiraLax laxative half a cap full Thursday can increase up to a cap full daily if needed. The goal is to have soft stool on regular basis. Bilateral varicoceles 06/04/2021 Benign essential HTN 03/06/2020 Assessment & Plan (06/15/2025 9:12 AM CLIPPER COUNTERS): Chronic; controlled on losartan, HCT; continue Assessment & Plan (06/14/2024 2:18 PM CLIPPER COUNTERS): BP a little up today; no alarm [...] (02/11/2022 4:53 PM CDT): Area of left nondenominational scalp looks normal now; no flaking, scaling or discoloration; advised patient to send photo when changes are present so we can better diagnose Screening for colon cancer 11/27/2021 0 02/11/2022 Overview (11/27/2021): Added automatically from request for surgery [id number] Total bilirubin, elevated 10/30/2021 Assessment & Plan [...] Department Care Team Description 07/03/2025 9:40 AM CLIPPER COUNTERS Office Visit [facility] [address] [place] [address] [address] [place] [phone] Holland Mac MD Erectile dysfunction, unspecified erectile dysfunction type (Primary Dx) 07/03/2025 8:40 AM CLIPPER COUNTERS Office Visit [facility] [address] [place] [address] [address] [place] [phone] Dave Reddy NP Erectile dysfunction, unspecified erectile dysfunction type (Primary Dx) 07/03/2025 Telephone [facility] Medicine Surgery [address] [place] [address] Shikha Starks, [facility] 06/21/2025 Results Follow-Up [facility] at [address] [address] Robert Wells MD [facility] 06/19/2025 Telephone [facility] at [address] [address] Robert Wells MD Authorization/Certi fication 06/15/2025 9:00 AM CLIPPER COUNTERS Office Visit [facility] at [address] [address] Robert Wells MD Routine medical exam (Primary Dx); Morbid obesity (HCC); BMI 37.0-37.9, adult; Claudication; Benign essential HTN; Immunization due; Erectile dysfunction, unspecified erectile dysfunction type 06/15/2025 Orders Only [facility] at [address] [place] [phone] Provider, MD Talisha 05/15/2025 2:40 PM CDT Office Visit [facility] [address] [facility] [address] [place] [address] Holland Mac MD Scrotal pain [...] on file Legal Sex Male 6:09 AM CLIPPER COUNTERS Gender Identity Not on file Sexual Orientation Not on file Last Filed Vital Signs Vital Sign Reading Time Taken Comments Blood Pressure 138/82 06/15/2025 8:54 AM CLIPPER COUNTERS Pulse 76 06/15/2025 8:54 AM CLIPPER COUNTERS Temperature 36 C (96.8 F) 11/10/2024 10:45 AM CDT Respiratory Rate 22 11/10/2024 11:55 AM CDT Oxygen Saturation 98% 06/15/2025 8:54 AM CLIPPER COUNTERS Inhaled Oxygen Concentration - - Weight 122 kg (269 lb) 06/15/2025 8:54 AM CLIPPER COUNTERS Height 180.3 cm (5' 11) 06/15/2025 8:54 AM CLIPPER COUNTERS Body Mass Index 37.52 06/15/2025 8:54 AM CLIPPER COUNTERS Plan of Treatment Health Maintenance Due Date [...] - Final from Last 3 Months Insurance [facility] ACCESS CHOICE ANTHEM ACCESS CHOICE Care Teams Automotive Welder Relationship Specialty Start Date End Date Robert Wells MD [address] [place] [id number] PCP - General Internal Medicine 03/06/20
--- OUTSIDE RECORDS SUMMARY | 2025-07-03 15:26 | XMS_ITS | Encounter Summary ---
Author Organization [facility] Address [address] [place] [address] Care Team Providers Care Utility System Operator Name Role Phone Unavailable Primary Care Provider Unavailabl e Encounter Details Date Type Department Care Team (Late st Contact Info) Description 03/22/1999 Outpatient Historical [facility] [address] [place] [address] Livier Naik MD NO ADDRESS ON FILE Social History Tobacco Use Types Packs/Day Years Used Date Smoking Tobacco: Never Assessed Sex and Gender Information Value Date Recorded Sex Assigned at Not on file Legal Sex Male 4:52 AM C JAVA DEVELOPER Gender Identity Not on file Sexual Orientation Not on file documented as of this encounter Plan of Treatment Not on file documented as of this encounter Visit Diagnoses Not on filedocumented in this encounter
--- NOTE | 2025-07-03 15:42 | WPDURCON ---
Assessment and Plan Assessment and plan (1) Priapism: Code(s): N48.30 - Priapism, unspecified Status: Acute (2) Drug-induced priapism: Code(s): N48.33 - Priapism, drug-induced Status: Acute (3) Erectile dysfunction: Code(s): N52.9 - Male erectile dysfunction, unspecified Status: Acute Plan The penis was prepped. He was placed on a traffic monitor specialist. Phenylephrine was obtained from the pharmacy at 100 micrograms/mL. The ER physician and I injected 100 mcg into the right corporal body and 100 mg in the left corporal body. He was monitored on the traffic monitor specialist. He was watched for 10-15 minutes. There was complete flaccidity of the phallus at the conclusion of the procedure. No additional injections were needed. He tolerated the procedure well. I informed his urologist on the outcome Urology Consult Note HPI Date Seen: 07/03/25 Requesting Physician: Emergency department Primary Care Provider: PHYSICIAN NOT ON STAFF Consult Narrative Narrative: Kong Small is a 45 year old male with a history of erectile dysfunction. He received a shot of TriMix this morning as well as a Doppler ultrasound of the penis. This was done with his normal urologist at [facility] [address] [place]. According to the patient he had a moderate response to the TriMix injection. He now returns to the emergency room 4-5 hours later with the persistent painful erection. Examination confirms priapism. He signed consent with emergency room physician for an injection of phenylephrine. He was monitored during the injection with a traffic monitor specialist. Please also see ER documentation for full procedure note Review of Systems Review of Systems: All systems reviewed & are unremarkable except as noted in HPI and below Meds Home Medications and Allergies Allergies Allergy/AdvReac Type Severity Reaction Status Date / Time lisinopril AdvReac Cough Verified 07/03/25 14:12 Vital Signs Vital Signs - 24 hr 07/03/25 13:40 Temperature 97.9 F Pulse Rate 79 Respiratory Rate 18 Blood Pressure 163/103 H Pulse Oximetry 98 Oxygen Delivery Room Air Exam Narrative: He has erectile corporal bodies. The spongiosum and glans penis is flaccid Results Labs 07/03/25 14:03 07/03/25 14:03 Labs: Short CBC 07/03/25 Range/Units 14:03 WBC 6.7 (4.5-10.0) K/mm3 Hgb 17.1 (14.0-18.0) g/dL Hct 49.0 (42.0-52.0) % Plt Count 190 (150-375) k/mm3 BMP 07/03/25 14:03 Sodium 139 Potassium 3.8 Chloride 102 Carbon Dioxide 31 H BUN 8 L Creatinine 1.47 H Glucose 85 Calcium 9.4 Urine 07/03/25 Range/Units 14:03 Urine Color Yellow (Yellow) Urine Appearance Clear (Clear) Urine pH 8.0 (5.0-9.0) Ur Specific [place] 1.014 (1.001-1.035) Urine Protein Negative (Negative) mg/dL Urine Glucose (UA) Negative (Negative) mg/dL
[2025-07-03 16:10] VITALS: BP 148/88; PULSE 84; RESP 18; TEMP 36.8; O2SAT 100
== END 2025-07-03 16:05 | disposition home or self-care (01) ==
PROVIDERS: Emergency Provider Student in an Organized Health Care Education/Training Program
DX: N48.33 Priapism, drug-induced (principal); N52.9 Male erectile dysfunction, unspecified; N17.9 Acute kidney failure, unspecified; I10 Essential (primary) hypertension
CPT/HCPCS: 36415; 54220; 80048; 80307; 81001; 85025; 85610; 85730; 96374; 99284; J2270; J7030